=== PATIENT | female | born 1995 | race Caucasian/White ===

== ENCOUNTER → 2018-12-05 | Outpatient (REF) | payer BC ==
[2018-12-05 13:17] LABS: FOLLICLE STIMULATING HORMONE 4.9 mIU/mL; FREE T4 0.94 NG/DL (0.76-1.46); LUTEINIZING HORMONE 7.7 mIU/mL; THYROID STIMULATING HORMONE 1.32 uIU/ML (0.358-3.740)
[2018-12-06 10:11] LABS: TESTOSTERONE FREE (DIRECT) 1.6 pg/mL (0.0-4.2)
== END ==
LOC: M SFHCWAGY 09:09
PROVIDERS: ATTEND Nurse Practitioner Women's Health
DX: Z12.4 Encounter for screening for malignant neoplasm of cervix (principal); N91.3 Primary oligomenorrhea
CPT/HCPCS: 36415; 83001; 83002; 84402; 84403; 84439; 84443; G0123

== ENCOUNTER 2019-11-20 14:42 | Emergency (ER) | payer BC, OTHER ==
[~2019-11-20] VITALS: Ht 170.2 cm; Wt 88.7 kg
[2019-11-20 16:11] VITALS: BP 128/78
--- NOTE | 2019-11-20 16:16 | REP ---
RIGHT ELBOW, FOUR VIEWS: There is no evidence of an acute fracture, dislocation or intrinsic bone disease. IMPRESSION: No fracture or dislocation. Electronically Signed by Grady Bryan MD 11/21/2019 07:19 P
--- NOTE | 2019-11-20 16:16 | REP ---
RIGHT WRIST, FOUR VIEWS: There is no evidence of an acute fracture, dislocation or intrinsic bone disease. IMPRESSION: No fracture or dislocation. Electronically Signed by Grady Bryan MD 11/21/2019 07:18 P
== END 2019-11-20 16:19 | disposition home or self-care (01) ==
LOC: M ED 14:42
DX: S63.501A Unspecified sprain of right wrist, initial encounter (principal); M25.521 Pain in right elbow; M25.531 Pain in right wrist; Y04.2XXA Assault by strike against or bumped into by another person, initial encounter; Y92.9 Unspecified place or not applicable

== ENCOUNTER → 2021-03-16 | Outpatient (REF) | payer OTHER | LOC: M PLALAB 10:04 | PROVIDERS: ATTEND Advanced Practice Midwife | DX: Z34.02 Encounter for supervision of normal first pregnancy, second trimester (principal) ==

== ENCOUNTER → 2021-03-17 | Outpatient (CLI) | payer OTHER ==
--- NOTE | 2021-03-17 09:00 | REP ---
INDICATION: ANATOMY COMPARISON: None. TECHNIQUE: Transabdominal obstetrical ultrasound with color Doppler evaluation. FINDINGS: Examination demonstrates a single live intrauterine in variable presentation. motion is identified by technologist. Placenta is noted posterior grade 0 and grade without evidence for placenta previa or abruption. Amniotic fluid volume is normal. Cervix measures 4.7 cm in length and appears closed.. Selected gestational age: 22 weeks 0 days with SHEY 07/21/2021. Gestational age by current measurements 22 weeks 5 days with SHEY 07/16/2021. FHR equals 136 beats per minute. BPD: 5.4 cm at 22 weeks 3 days HC: 19.6 cm at 21 weeks 5 days AC: 17.1 cm at 22 weeks 1 day FL: 4.1 cm at 23 weeks 3 days HL: 3.9 cm at 24 weeks 0 days HC/AC: 1.14 Estimated weight 517 grams (74thpercentile). Anatomical assessment demonstrates normal structures including cranium, choroid plexus, cavum, cerebellum/posterior fossa, facial features, lungs, stomach, cord insertion/three-vessel cord, kidneys/bladder, spine, and extremities. Limited evaluation of the four-chamber heart and diaphragm due to maternal body habitus and positioning. IMPRESSION: Single live intrauterine in variable presentation demonstrating appropriate estimated weight. Anatomical limitations as noted above may warrant re-evaluation and follow-up. No obvious gross abnormality identified. <Electronically signed by Servando Farah > 03/17/21 [id number]
== END ==
LOC: M WHC 07:50
PROVIDERS: ATTEND Advanced Practice Midwife
DX: Z36.9 Encounter for antenatal screening, unspecified (principal); Z3A.22 22 weeks gestation of pregnancy

== ENCOUNTER → 2021-04-13 | Outpatient (CLI) | payer OTHER ==
[2021-04-13 10:28] LABS: HEMOGLOBIN 10.7 g/dl (12.0-15.5); MEAN CORPUSCULAR HEMOGLOBIN 29.2 pg (27.0-33.0); MEAN CORPUSCULAR HGB CONC 32.4 g/dl (32.0-36.5); MEAN CORPUSCULAR VOLUME 90.2 fl (80.0-96.0); PLATELET COUNT, AUTOMATED 178 10^3/uL (150-450); RED BLOOD COUNT 3.66 10^6/uL (4.00-5.40)
== END ==
LOC: M PLALAB 07:56
PROVIDERS: ATTEND Advanced Practice Midwife
DX: Z34.02 Encounter for supervision of normal first pregnancy, second trimester (principal); Z3A.00 Weeks of gestation of pregnancy not specified

== ENCOUNTER → 2021-04-27 | Outpatient (CLI) | payer OTHER ==
--- NOTE | 2021-04-28 07:38 | REP ---
INDICATION: F/U ANATOMY. FOLLOW-UP FOUR-CHAMBER HEART COMPARISON: None. TECHNIQUE: Transabdominal FINDINGS: Multiple ultrasonographic images of the gravid uterus shows a single living intrauterine gestation in the transverse position. Doppler interrogation of the heart shows a heart rate of 135 beats per minute. The placenta is posterior and not low-lying. The cervix measures 4.3 cm in length and is closed. The subjective amniotic fluid volume is within normal limits. BPD: 7.3 cm 29 weeks 2 days HC: 26.2 cm 28 weeks 4 days AC: 24.4 cm 20 weeks 4 days FL: 5.3 cm 28 weeks 1 day The estimated weight is 1239 g which is at the 63rd percentile. Four-chamber heart was seen to be unremarkable. IMPRESSION: Single living intrauterine gestation as described above with an estimated gestational age of 28 weeks 4 days via composite criteria and an estimated date of delivery 07/16/2021 by today's exam. No anomalies were detected. <Electronically signed by Jayden Hinds > 04/28/21 [id number]
== END ==
LOC: M WHC 15:00
PROVIDERS: ATTEND Specialist
DX: Z34.82 Encounter for supervision of other normal pregnancy, second trimester (principal)

== ENCOUNTER → 2021-04-27 | Outpatient (CLI) | payer OTHER | LOC: M LAB 07:51 | PROVIDERS: ATTEND Advanced Practice Midwife | DX: O99.810 Abnormal glucose complicating pregnancy (principal) ==

== ENCOUNTER → 2021-06-28 | Outpatient (REF) | payer OTHER | LOC: M SFHCWAGY 16:57 | PROVIDERS: ATTEND Obstetrics & Gynecology | DX: Z36.89 Encounter for other specified antenatal screening (principal); Z3A.36 36 weeks gestation of pregnancy ==

== ENCOUNTER 2021-07-09 20:23 | Outpatient (CLI) | payer OTHER ==
[~2021-07-09] VITALS: Ht 170.2 cm; Wt 95.0 kg
[2021-07-09 20:31] VITALS: BP 124/73
[2021-07-09] MEDS ORDERED: ZOLO25TA PO (20:57)
[2021-07-09] MEDS ORDERED: PRENTAB9 PO (20:57)
== END 2021-07-09 22:05 | disposition home or self-care (01) ==
LOC: M LDO 20:23
PROVIDERS: ATTEND Obstetrics & Gynecology
DX: O26.893 Other specified pregnancy related conditions, third trimester (principal); O36.8130 Decreased fetal movements, third trimester, not applicable or unspecified; Z71.1 Person with feared health complaint in whom no diagnosis is made; Z3A.38 38 weeks gestation of pregnancy
CPT/HCPCS: 59025; G0378; G0463

== ENCOUNTER → 2023-07-12 | Outpatient (REF) | payer OTHER ==
[~2023-07-12] MED LIST: ACET-683 PO; IBUP80TA PO; PRENTAB9 PO; ZOLO25TA PO
== END ==
LOC: M LAB REF 17:23
PROVIDERS: ATTEND Pediatrics
DX: J06.9 Acute upper respiratory infection, unspecified (principal)